=== PATIENT | female | born 1940 | race Caucasian/White ===

== ENCOUNTER 2019-10-09 05:58 | Day surgery (SDC) | payer BC ==
[~2019-10-09] VITALS: Ht 165.1 cm; Wt 65.8 kg
[~2019-10-09 05:58] MED LIST: ATOR10TA52 PO; GABA100C9 PO; LOSA-39 PO; LUBI24CA6 PO; PIRO-23 PO; POTA1TAB61 PO; RIVA20TA PO; TRAM50TA2 PO; [UNRECOGNIZED DRUG - CODE] IM
[2019-10-09] MEDS ORDERED: ceFAZolin 1GM/50ML 100 ML IV ONE (07:09)
[2019-10-09] MEDS ORDERED: BUPIVACAINE W/ EPINEPH 0.25% INJ 50ML MDV ONE (07:21)
[2019-10-09] MEDS ORDERED: LIDOCAINE W/ EPINEPHRINE 2% INJ 20ML VIAL ONE (07:21)
[2019-10-09] MEDS ORDERED: MORPHINE SULF(PF) 0.5MG/ML 10ML VIAL ONE (07:22)
[2019-10-09] MEDS ORDERED: VANCOMYCIN HCL 1000 MG VL ONE (07:25)
[2019-10-09] MEDS ORDERED: SUCCINYLCHOLINE CHLORIDE 20 MG/ML 10ML VIAL IV ONE (07:27)
[2019-10-09] MEDS ORDERED: MIDAZOLAM HCL 1MG/1ML-2 ML VIAL ONE (07:51)
[2019-10-09] MEDS ORDERED: fentaNYL CITRATE 100 MCG/2 ML VL ONE ×2 (07:51→08:16)
[2019-10-09] MEDS ORDERED: PROPOFOL 10 MG/ML 20 ML IV ONE (08:15)
[2019-10-09] MEDS ORDERED: ePHEDrine SULFATE 50 MG/ML AMP IV PRN (09:00)
[2019-10-09] MEDS ORDERED: fentaNYL CITRATE 100 MCG/2 ML VL IV PRN (09:00)
[2019-10-09] MEDS ORDERED: ONDANSETRON HCL 4 MG/2 ML VIAL IV PRN (09:00)
[2019-10-09] MEDS ORDERED: hydrALAZINE HCL 20 MG/ML VL IV PRN (09:00)
[2019-10-09 09:35] VITALS: BP 155/61
== END 2019-10-09 09:50 | disposition home or self-care (01) ==
LOC: SUR 05:58
PROVIDERS: ATTEND Anesthesiology Pain Medicine
DX: M48.062 Spinal stenosis, lumbar region with neurogenic claudication (principal); I10 Essential (primary) hypertension; K21.9 Gastro-esophageal reflux disease without esophagitis; Z98.890 Other specified postprocedural states; Z11.59 Encounter for screening for other viral diseases; Z96.649 Presence of unspecified artificial hip joint; Z79.899 Other long term (current) drug therapy
CPT/HCPCS: 22869; 22870; 72100; C1821; J0330; J0690; J2250; J2270; J2704; J3010; J3370; U0003; 76000